=== PATIENT | female | born 1955 | race American Indian/Alaskan Native ===

== ENCOUNTER 2018-04-03 16:59 | Emergency (ER) | payer SELFPAY ==
[2018-04-03] MEDS ORDERED: NACL 0.9% 1000 ML 1,000 ML IV ONE (17:52)
--- NOTE | 2018-04-03 17:59 | Emergency Department Report ---
ED GI Bleed HPI - General Chief complaint: GI Bleed Stated complaint: Dizzy Time Seen by Provider: 04/03/18 17:51 Source: patient, EMS Mode of arrival: Stretcher Limitations: No Limitations - History of Present Illness Initial comments: 62-year-old female with a past medical history of thyroid cancer with previous thyroidectomy currently on Synthroid for this hospital complains of syncopal episode and possible GI bleed. Patient states that he felt fine today but admits to having a minimum food and fluid intake today felt like she had to urinate and then has had onset of left-sided flank pain and urge to have a bowel movement. Patient then developed lightheadedness, generalized weakness, and diaphoresis. She had a syncopal episode witnessed by her . She was unresponsive for about 3-4 minutes and patient had an episode of fecal incontinence. Patient went to the closest clinic which was a [facility] clinic (see note in chart). Initial blood pressure reading was 67/29 and she was noted to be diaphoretic and pale upon presentation and with bloody stool. Patient had an IV placed and received 1 L of normal size prior to arrival and states that she feels better after treatment. Patient is insisting that she feels better and does not need hospitalization and that she likely passed out because she was dehydrated. She is agreeable to receiving initial ED workup. I informed her we would be discussed disposition after evaluation. Previous history of abdominal surgery. Denies history of rectal bleeding. Last colonoscopy was "many years ago". Pain free at this time - Related Data Home Medications Medication Instructions Recorded Confirmed Last Taken Levothyroxine [Synthroid] 75 mcg PO DAILY 04/03/18 04/03/18 1 Day Ago ~04/02/18 Allergies Allergy/AdvReac Type Severity Reaction Status Date / Time erythromycin base Allergy Unknown Verified 04/03/18 17:52 [From E-Mycin] ED Review of Systems ROS: Stated complaint: Dizzy Other details as noted in HPI Comment: All other systems reviewed and negative ED Past Medical Hx - Past Medical History Previous Medical History?: Yes Hx of Cancer: Yes (thyroid cancer treated with thyroidectom) Additional medical history: Thyroid CA - Surgical History Additional Surgical History: Thyroidectomy. - Social History Smoking Status: Never Smoker Substance Use Type: None - Medications Home Medications: Home Medications Medication Instructions Recorded Confirmed Last Taken Type Levothyroxine [Synthroid] 75 mcg PO DAILY 04/03/18 04/03/18 1 Day Ago History ~04/02/18 ED Physical Exam - General Limitations: No Limitations - Other Other exam information: General: No limitations, patient is alert in no acute distress Head exam: Atraumatic, normocephalic Eyes exam: Normal appearance ENT: Moist mucous membrane, normal oropharynx Neck exam: Normal inspection, full range of motion, no meningismus nontender Respiratory exam: Clear to auscultation bilateral, no wheezes, rales, crackles Cardiovascular: Normal rate and rhythm, normal heart sounds Abdomen: Soft, nondistended, and nontender, with normal bowel sounds, no rebound, or guarding Rectal: No hemorrhoid. Brown bloody stool that is guaiac positive Extremity: Full range of motion normal inspection no deformity Back: Normal Inspection, full range of motion, no tenderness Neurologic: Alert, oriented x3, cranial nerves intact, no motor or sensory deficit Psychiatric: normal affect, normal mood Skin: Warm, dry, intact ED Course Vital Signs 04/03/18 04/03/18 04/03/18 17:24 17:30 17:34 Temperature 98.1 F Pulse Rate 79 88 Respiratory 9 L 18 Rate Blood Pressure 104/66 104/66 O2 Sat by Pulse 99 98 98 Oximetry 04/03/18 04/03/18 04/03/18 17:46 18:00 18:16 Temperature Pulse Rate 87 89 91 H Respiratory 19 12 10 L Rate Blood Pressure 104/66 108/35 108/35 O2 Sat by Pulse 99 99 100 Oximetry 04/03/18 04/03/18 04/03/18 18:30 19:52 20:00 Temperature Pulse Rate 87 87 86 Respiratory 9 L 12 12 Rate Blood Pressure 113/50 113/50 103/66 O2 Sat by Pulse 100 Oximetry 04/03/18 21:38 Temperature Pulse Rate Respiratory 16 Rate Blood Pressure O2 Sat by Pulse 98 Oximetry - Reevaluation(s) Reevaluation #1: 04/03/18 17:59 Additional IV fluids ordered, CT, and labs pending. Informed patient that she likely the hospital ED Medical Decision Making - Lab Data Result diagrams: 04/03/18 19:30 04/03/18 19:30 Lab Results 04/03/18 04/03/18 04/03/18 Range/Units 19:30 19:30 19:30 WBC 9.8 (4.5-11.0) K/mm3 RBC 3.30 L (3.65-5.03) M/mm3 Hgb 10.3 (10.1-14.3) gm/dl Hct 30.2 L (30.3-42.9) % MCV 92 (79-97) fl MCH 31 (28-32) pg MCHC 34 (30-34) % RDW 14.0 (13.2-15.2) % Plt Count 241 (140-440) K/mm3 Lymph % (Auto) 22.5 (13.4-35.0) % Drew % (Auto) 8.6 H (0.0-7.3) % Eos % (Auto) 0.0 (0.0-4.3) % Baso % (Auto) 0.5 (0.0-1.8) % Lymph # 2.2 (1.2-5.4) K/mm3 Drew # 0.8 (0.0-0.8) K/mm3 Eos # 0.0 (0.0-0.4) K/mm3 Baso # 0.0 (0.0-0.1) K/mm3 Seg Neutrophils % 68.4 (40.0-70.0) % Seg Neutrophils # 6.7 (1.8-7.7) K/mm3 PT 15.5 H (12.2-14.9) Sec. INR 1.17 H (0.87-1.13) APTT 21.5 L (24.2-36.6) Sec. Sodium 143 (137-145) mmol/L Potassium 4.4 (3.6-5.0) mmol/L Chloride 107.1 H (98-107) mmol/L Carbon Dioxide 20 L (22-30) mmol/L Anion Gap 20 mmol/L BUN 26 H (7-17) mg/dL Creatinine 0.7 (0.7-1.2) mg/dL Estimated GFR > 60 ml/min BUN/Creatinine Ratio 37 % Glucose 145 H (65-100) mg/dL Calcium 8.7 (8.4-10.2) mg/dL Total Bilirubin 0.40 (0.1-1.2) mg/dL AST 19 (5-40) units/L ALT 9 (7-56) units/L Alkaline Phosphatase 64 (35-129) units/L Total Creatine Kinase (30-135) units/L CK-MB (CK-2) (0.0-4.0) ng/mL CK-MB (CK-2) Rel Index (0-4) Troponin T (0.00-0.029) ng/mL Total Protein 6.7 (6.3-8.2) g/dL Albumin 4.2 (3.9-5) g/dL Albumin/Globulin Ratio 1.7 % Blood Type Antibody Screen 04/03/18 04/03/18 Range/Units 19:30 19:30 WBC (4.5-11.0) K/mm3 RBC (3.65-5.03) M/mm3 Hgb (10.1-14.3) gm/dl Hct (30.3-42.9) % MCV (79-97) fl MCH (28-32) pg MCHC (30-34) % RDW (13.2-15.2) % Plt Count (140-440) K/mm3 Lymph % (Auto) (13.4-35.0) % Drew % (Auto) (0.0-7.3) % Eos % (Auto) (0.0-4.3) % Baso % (Auto) (0.0-1.8) % Lymph # (1.2-5.4) K/mm3 Drew # (0.0-0.8) K/mm3 Eos # (0.0-0.4) K/mm3 Baso # (0.0-0.1) K/mm3 Seg Neutrophils % (40.0-70.0) % Seg Neutrophils # (1.8-7.7) K/mm3 PT (12.2-14.9) Sec. INR (0.87-1.13) APTT (24.2-36.6) Sec. Sodium (137-145) mmol/L Potassium (3.6-5.0) mmol/L Chloride (98-107) mmol/L Carbon Dioxide (22-30) mmol/L Anion Gap mmol/L BUN (7-17) mg/dL Creatinine (0.7-1.2) mg/dL Estimated GFR ml/min BUN/Creatinine Ratio % Glucose (65-100) mg/dL Calcium (8.4-10.2) mg/dL Total Bilirubin (0.1-1.2) mg/dL AST (5-40) units/L ALT (7-56) units/L Alkaline Phosphatase (35-129) units/L Total Creatine Kinase 58 (30-135) units/L CK-MB (CK-2) < 1.0 (0.0-4.0) ng/mL CK-MB (CK-2) Rel Index 1.7 (0-4) Troponin T < 0.010 (0.00-0.029) ng/mL Total Protein (6.3-8.2) g/dL Albumin (3.9-5) g/dL Albumin/Globulin Ratio % Blood Type O POSITIVE Antibody Screen Negative - Radiology Data Radiology results: report reviewed FINAL REPORT EXAM: CT ABDOMEN PELVIS W CON HISTORY: GI Bleed TECHNIQUE: Spiral CT scanning of the abdomen and pelvis after the uneventful administration of IV contrast. Multiplanar reformations. 100 mL Omnipaque IV. PRIORS: None. FINDINGS: Abdomen: Visualized lung bases grossly unremarkable. Bilateral breast implants partially visualized and grossly unremarkable. No radiopaque gallstones. Liver without significant abnormality. Spleen without significant abnormality. Pancreas without significant abnormality. Kidneys without significant abnormality. Adrenal glands without significant abnormality. Pelvis: Bowel evaluation limited due to lack of oral contrast administration. Heterogeneous, mildly hyperdense intraluminal contents noted in the descending and sigmoid colon, on initial sequence as compared to right colon, possibly related to contrast versus blood products. No focal inflammatory segment or evidence of mechanical bowel obstruction. Possible appendix partially visualized and grossly unremarkable. Trace amount of nonspecific, free fluid in the pelvis may be physiologic. No discrete abscess. Abdominal aorta non-aneurysmal. Multiple, serpiginous parametrial vessels, which may be associated with pelvic vascular congestion syndrome. Axial skeleton grossly unremarkable. IMPRESSION: 1. Questionable intraluminal contrast versus blood products in the descending and sigmoid colon of uncertain etiology. Clinical correlation and followup suggested. 2. Otherwise, unremarkable. - Medical Decision Making GI bleed with associated hypotension and syncope Patient is concerned about the cost associated with hospital stay hospitalization She refused to have EKG performed Her blood pressure has remained stable after IV fluids however, she has had several bloody bowel movements in the ED Explained multiple times I recommend admission due to bloody stool associated with syncopal episode prior to arrival with hypotension. Also the fact the CT suggests that there is blood in her colon (patient did not receive oral contrast ) I explained that her hemoglobin may continue to drop I discussed that I can provide GI referral but her condition is emergent and she requires monitoring Despite this patient insists that she does not want to stay. I explained the risks of continued bleeding, syncope, hypotension, and Patient wants to sign out AGAINST MEDICAL ADVICE - Differential Diagnosis diverticulosis, anemia, vasovagal, dehydration, cancer, hemorrhoids Critical Care Time: No Critical care attestation.: If time is entered above; I have spent that time in minutes in the direct care of this critically ill patient, excluding procedure time. ED Disposition Clinical Impression: GI bleed, Syncope Disposition: [id number] LEFT AGAINST MED ADVICE Is pt being admited?: No Condition: Stable Instructions: Syncope (ED), Rectal Bleeding (ED) Additional Instructions: You are signing out AGAINST MEDICAL ADVICE. The CAT scan shows that you have blood in your intestines and you may continue to have bleeding after leaving the ER. You are at risk for anemia, low blood pressure, and . Please return if symptoms worsen as indicated by your discharge instructions. Referrals: GINA MATHEW MD [Staff Physician] - ANNIE (Gi specialist ) Forms: AMA Form Time of Disposition: 22:40
[2018-04-03 19:48] LABS: Basophils % (Auto) 0.5 % (0.0-1.8); Hematocrit 30.2 % (30.3-42.9); Hemoglobin 10.3 gm/dl (10.1-14.3); Lymphocytes # (Auto) 2.2 K/mm3 (1.2-5.4); Lymphocytes % (Auto) 22.5 % (13.4-35.0); Mean Corpuscular HGB Conc 34 % (30-34); Mean Corpuscular Hemoglobin 31 pg (28-32); Mean Corpuscular Volume 92 fl (79-97); Monocytes # (Auto) 0.8 K/mm3 (0.0-0.8); Monocytes % (Auto) 8.6 % (0.0-7.3); Platelet Count 241 K/mm3 (140-440)
[2018-04-03 19:59] LABS: INR 1.17 (0.87-1.13); Partial Thromboplastin Time 21.5 Sec. (24.2-36.6)
[2018-04-03 20:11] LABS: Alanine Aminotransferase 9 units/L (7-56); Albumin 4.2 g/dL (3.9-5); BUN/Creatinine Ratio 37; Blood Urea Nitrogen 26 mg/dL (7-17); Calcium 8.7 mg/dL (8.4-10.2); Hemolysis Index 32
[2018-04-03 20:35] LABS: Creatine Kinase MB < 1.0 ng/mL (0.0-4.0)
--- NOTE | 2018-04-03 22:26 | Cat Scan Report ---
FINAL REPORT EXAM: CT ABDOMEN PELVIS W CON HISTORY: GI Bleed TECHNIQUE: Spiral CT scanning of the abdomen and pelvis after the uneventful administration of IV contrast. Multiplanar reformations. 100 mL Omnipaque IV. PRIORS: None. FINDINGS: Abdomen: Visualized lung bases grossly unremarkable. Bilateral breast implants partially visualized and grossly unremarkable. No radiopaque gallstones. Liver without significant abnormality. Spleen without significant abnormality. Pancreas without significant abnormality. Kidneys without significant abnormality. Adrenal glands without significant abnormality. Pelvis: Bowel evaluation limited due to lack of oral contrast administration. Heterogeneous, mildly hyperdense intraluminal contents noted in the descending and sigmoid colon, on initial sequence as compared to right colon, possibly related to contrast versus blood products. No focal inflammatory segment or evidence of mechanical bowel obstruction. Possible appendix partially visualized and grossly unremarkable. Trace amount of nonspecific, free fluid in the pelvis may be physiologic. No discrete abscess. Abdominal aorta non-aneurysmal. Multiple, serpiginous parametrial vessels, which may be associated with pelvic vascular congestion syndrome. Axial skeleton grossly unremarkable. IMPRESSION: 1. Questionable intraluminal contrast versus blood products in the descending and sigmoid colon of uncertain etiology. Clinical correlation and followup suggested. 2. Otherwise, unremarkable.
[2018-04-04 00:05] VITALS: BP 100/54
== END 2018-04-03 23:25 | disposition left against medical advice (07) ==
LOC: ED 16:59
DX: R55 Syncope and collapse (principal); K92.2 Gastrointestinal hemorrhage, unspecified; E89.0 Postprocedural hypothyroidism; Z85.850 Personal history of malignant neoplasm of thyroid; Z88.1 Allergy status to other antibiotic agents
CPT/HCPCS: 36415; 74177; 80053; 82271; 82550; 82553; 84484; 85025; 85610; 85730; 86850; 86900; 86901; 96360; 99285; Q9967